=== PATIENT | female | born 1990 | race Caucasian/White ===

== ENCOUNTER 2017-11-03 20:54 | Outpatient (CLI) | payer OTHER ==
--- NOTE | 2017-11-04 11:57 | Ultrasound Report ---
Procedure Date: 11/04/2017 Accession Number: [id number] / [id number] Procedure: US - Pelvic Complete CPT Code: FULL RESULT: EXAM: Pelvic Complete DATE: 11/04/2017 12:21 AM CLINICAL HISTORY: 4 WEEKS PELVIC PAIN TECHNIQUE: Transabdominal real-time scanning was performed with [employer] facility services static images obtained. COMPARISON: None FINDINGS: Limited visualization of the endometrial cavity/possible IUD. The 7.9 x 2.5 x 4.6 cm uterus has a volume of 47 cc. The endometrium measures 4 mm. Echogenic shadowing within the endometrial canal, felt to represent partial visualization of the intrauterine device is noted. The right ovary appears unremarkable measuring 2.2 x 1.3 x 1.4 cm with a volume of 2.1 mL and blood flow on color Doppler. The left ovary measures 5.6 x 2.1 x 3.1 cm with a volume of 19 mL and a likely dominant follicle and normal blood flow by color Doppler. No suspicious masses seen in either ovary. IMPRESSION: Limited visualization of the reported IUD. If localization of the IUD is the primary reason for the examination, transvaginal ultrasound with a dedicated 3-D image of the uterus could be performed. The remaining ultrasound exam is normal.
== END 2017-11-03 20:55 | disposition home or self-care (01) ==
LOC: DI 20:54
PROVIDERS: ATTEND Family Medicine
DX: R10.2 Pelvic and perineal pain (principal); Z97.5 Presence of (intrauterine) contraceptive device
CPT/HCPCS: 76856; 76857